=== PATIENT | male | born 1970 | race African-American/Black ===

== ENCOUNTER 2018-06-05 19:59 | Emergency (ER) | payer SELFPAY ==
[2018-06-05] MEDS ORDERED: AMLODIPINE BESYLATE 5 MG TABLET PO ONE (22:09)
--- NOTE | 2018-06-05 22:53 | ER Document Report ---
ED General - General Chief Complaint: Blurred Vision Stated Complaint: BLURRY VISION Time Seen by Provider: 06/05/18 21:59 Notes: Patient is a 48-year-old male who presents with complaint of some blurred vision. He says his vision became blurred after I work to drink a lot of soda. Says he is just craving soda today and drink three 2 L of soda followed by two 3 L of soda. This was not diastolic. He started noticing his vision was getting blurry and therefore check his blood sugar noticed was over 400 and therefore came to the ER. He does take metformin. He is also supposed to take amlodipine as well as lisinopril for high blood pressure however he does not take those now because he is read about some side effects of them and prefers to take natural medications. He therefore takes many supplements and vitamins. He is currently feeling better and has no further concerns at this time. Denies any chest pain or shortness of breath. No headache. No focal weakness or numbness. TRAVEL OUTSIDE OF THE [place] IN LAST 30 DAYS: No - Related Data Allergies/Adverse Reactions: No Known Allergies Allergy (Unverified 06/05/18 20:05) Past Medical History - Social History Smoking Status: Unknown if Ever Smoked Frequency of alcohol use: None Drug Abuse: None Family History: Reviewed & Not Pertinent Review of Systems - Review of Systems Notes: My Normal Review Basic REVIEW OF SYSTEMS: CONSTITUTIONAL : Denies fever, chills, or sweats. Denies recent illness. EENT: Blurred vision CARDIOVASCULAR: Denies chest pain. RESPIRATORY: Denies cough, cold, or chest congestion. Denies shortness of breath, difficulty breathing, or wheezing. GASTROINTESTINAL: Denies abdominal pain. Denies nausea, vomiting, or diarrhea. MUSCULOSKELETAL: Denies neck or back pain or joint pain or swelling. SKIN: Denies rash or skin lesions. NEUROLOGICAL: Denies altered mental status or loss of consciousness. Denies headache. Denies weakness or paralysis or loss of use of either side. Denies problems with gait or speech. Denies sensory or motor loss. P ALL OTHER SYSTEMS REVIEWED AND NEGATIVE. Physical Exam - Vital signs Vitals: Temp Pulse BP Pulse Ox 98.5 F 107 H 163/98 H 97 06/05/18 20:45 06/05/18 20:45 06/05/18 20:45 06/05/18 20:45 - Notes Notes: General Appearance: Well nourished, alert, cooperative, no acute distress, no obvious discomfort. Well-appearing. Vitals: reviewed, See vital signs table. Head: no swelling or tenderness to the head Eyes: PERRL, EOMI, Conjuctiva clear Mouth: No decreasd moisture Lungs: No wheezing, No rales, No rhonci, No accessory muscle use, good air exchange bilaterally. Heart: Normal rate, Regular rythm, No murmur, no rub Abdomen: Normal BS, soft, No rigidity, No abdominal tenderness, No guarding, no rebound, no abdominal masses, no organomegaly Extremities: strength 5/5 in all extremities, good pulses in all extremities, no swelling or tenderness in the extremities, no edema. Skin: warm, dry, appropriate color, no rash Neuro: speech clear, oriented x 3, normal affect, responds appropriately to questions. Cranial nerves II through XII are intact. Distal sensation intact. Patient moves all extremities without difficulty. Course - Re-evaluation Re-evalutation: 06/06/18 06:36 Patient's blood sugars down trending appropriately without any intervention. His eventually brought all his supplements. He is on close to 15 different kinds of vitamins and supplements. I informed the patient that I really have no idea what kind interaction all the supplements together could have. I informed him that I recommended just taking a multivitamin and then start taking his blood pressure medications again. I told him that we would at least start back with amlodipine. I have written a prescription for this. Patient is also now out of his metformin so have also written a prescription for that. Encourage him to continue try to lose weight as if he continues weight loss he may eventually will stop all medications. Patient agrees with plan will be discharged home. Is encouraged to return to ER if he has recurrent blurred vision, headaches, focal weakness or numbness, or feels unwell. Patient informed not to drink sugar containing drinks anymore. Dictation of this chart was performed using voice recognition software; therefore, there may be some unintended grammatical errors. - Vital Signs Vital signs: Temp Pulse Resp BP Pulse Ox 98.1 F 85 18 148/82 H 98 06/05/18 23:46 06/05/18 23:46 06/05/18 23:46 06/05/18 23:46 06/05/18 23:46 - Laboratory Result Diagrams: 06/05/18 22:50 Laboratory results interpreted by me: 06/05/18 06/05/18 22:50 22:50 Glucose 271 H POC Glucose 261 H Discharge - Discharge Clinical Impression: Hyperglycemia due to type 2 diabetes mellitus Qualifiers: Diabetes mellitus long term care social worker insulin use: without halfway use Qualified Code(s ): E11.65 - Type 2 diabetes mellitus with hyperglycemia Hypertension Qualifiers: Hypertension type: unspecified Qualified Code(s): I10 - Essential (primary) hypertension Condition: Good Disposition: HOME, SELF-CARE Additional Instructions: Please avoid all beverages with sugar. Drink diet soda if you want to drink soda. Please take your blood pressure medications. Please continue to try and lose weight. I would stop the supplements except for the multivitamin as they may interact with your prescribed medications. Prescriptions: Amlodipine Besylate 5 mg PO DAILY #30 tab Metformin HCl [Glucophage 500 mg Tablet] 1,000 mg PO BID #60 tablet
[2018-06-05 23:13] LABS: ANION GAP 13 (5-19); BLOOD UREA NITROGEN 12 mg/dL (7-20); CALCIUM 9.9 mg/dL (8.4-10.2); CARBON DIOXIDE 26 mmol/L (22-30); CHLORIDE 103 mmol/L (98-107); GLUCOSE 271 mg/dL (75-110); POTASSIUM 3.8 mmol/L (3.6-5.0); SODIUM 142.1 mmol/L (137-145)
[2018-06-05 23:47] VITALS: BP 148/82
== END 2018-06-05 23:47 | disposition home or self-care (01) ==
LOC: ER 19:59
DX: E11.65 Type 2 diabetes mellitus with hyperglycemia (principal); Z79.84 Long term (current) use of oral hypoglycemic drugs; I10 Essential (primary) hypertension; T46.4X6A Underdosing of angiotensin-converting-enzyme inhibitors, initial encounter; T46.1X6A Underdosing of calcium-channel blockers, initial encounter; Z91.128 Patient's intentional underdosing of medication regimen for other reason; Z91.14 Patient's other noncompliance with medication regimen; Z79.899 Other long term (current) drug therapy; H53.8 Other visual disturbances
CPT/HCPCS: 36415; 80048; 82962; 99284

== ENCOUNTER 2018-10-18 11:12 | Emergency (ER) | payer SELFPAY ==
[2018-10-18 11:40] VITALS: BP 153/86
--- NOTE | 2018-10-18 12:58 | ER Document Report ---
ED Eye Complaint - General Chief Complaint: Redness of Eye Stated Complaint: EYE IRRITATION, REDNESS Time Seen by Provider: 10/18/18 12:36 Mode of Arrival: Ambulatory Information source: Patient Notes: 48-year-old male presented to ED for complaint of right eye redness with clear watery drainage. He denies any matting to the eyes. He denies any visual disturbances. He denies any pain or itching. He states it is just clear drainage. The symptoms of an upper respiratory infection. Runny nose and congestion. Patient does deny any fevers. She is alert oriented respirations regular and unlabored speaking in full sentences walks with a even steady gait. TRAVEL OUTSIDE OF THE [place] IN LAST 30 DAYS: No - HPI Onset: This morning Eye location: Right Injury: No Quality of pain: No pain Severity: None Pain Level: Denies Associated symptoms: Redness - Mild redness to the conjunctival, Other - Clear drainage. denies: Burning, Itching, Pain, Photophobia, Matting, Eyelid sw elling, Orbital swelling, Blurred vision, Double vision, Decreased vision, Loss of vision - Related Data Allergies/Adverse Reactions: No Known Allergies Allergy (Verified 10/18/18 11:22) Past Medical History - General Information source: Patient - Social History Smoking Status: Never Smoker Chew tobacco use (# tins/day): No Frequency of alcohol use: None Drug Abuse: None Family History: Reviewed & Not Pertinent Patient has suicidal ideation: No Patient has homicidal ideation: No - Past Medical History Cardiac Medical History: Reports: Hx Hypertension Pulmonary Medical History: Reports: None EENT Medical History: Reports: None Neurological Medical History: Reports: None Endocrine Medical History: Reports: Hx Diabetes Mellitus Type 2 Renal/ Medical History: Reports: None Malignancy Medical History: Reports None GI Medical History: Reports: None Musculoskeletal Medical History: Reports None Skin Medical History: Reports None Psychiatric Medical History: Reports: None Traumatic Medical History: Reports: None Infectious Medical History: Reports: None Surgical Hx: Negative Past Surgical History: Reports: None - Immunizations Immunizations up to date: Yes Review of Systems - Review of Systems EENT: Eye discharge, Nose congestion, Nose discharge, Sinus pressure, Sinus discharge. denies: Eye pain Cardiovascular: No symptoms reported Respiratory: No symptoms reported Gastrointestinal: No symptoms reported Genitourinary: No symptoms reported Male Genitourinary: No symptoms reported Musculoskeletal: No symptoms reported Skin: No symptoms reported Hematologic/Lymphatic: No symptoms reported Neurological/Psychological: No symptoms reported -: Yes All other systems reviewed and negative Physical Exam - Vital signs Vitals: Temp Pulse Resp BP Pulse Ox 98.1 F 72 16 153/86 H 95 10/18/18 11:38 10/18/18 11:38 10/18/18 11:38 10/18/18 11:38 10/18/18 11:38 Interpretation: Normal - General General appearance: Appears well, Alert - HEENT Head: Normocephalic, Atraumatic Eyes: Normal Conjunctiva: Injected, Other - Clear drainage Cornea: Normal Extraocular movements intact: Yes Eyelashes: No: Matted Pupils: PERRL Ears: Normal External canal: Normal Tympanic membrane: Normal Sinus: Normal Nasal: Swelling, Clear rhinorrhea Mouth/Lips: Normal Mucous membranes: Normal Pharynx: Post nasal drainage Neck: Normal - Respiratory Respiratory status: No respiratory distress Chest status: Nontender Breath sounds: Normal Chest palpation: Normal - Cardiovascular Rhythm: Regular Heart sounds: Normal auscultation Murmur: No - Abdominal Inspection: Normal Distension: No distension Bowel sounds: Normal Tenderness: Nontender Organomegaly: No organomegaly - Back Back: Normal, Nontender - Extremities General upper extremity: Normal inspection, Nontender, Normal color, Normal ROM, Normal temperature General lower extremity: Normal inspection, Nontender, Normal color, Normal ROM, Normal temperature, Normal weight bearing. No: Krista's sign - Neurological Neuro grossly intact: Yes Cognition: Normal Orientation: AAOx4 Edde Coma Scale Eye Opening: Spontaneous [place] Coma Scale Verbal: Oriented Dede Coma Scale Motor: Obeys Commands Dede Coma Scale Total: 15 Speech: Normal Motor strength normal: LUE, RUE, LLE, RLE Sensory: Normal - Psychological Associated symptoms: Normal affect, Normal mood - Skin Skin Temperature: Warm Skin Moisture: Dry Skin Color: Normal Course - Re-evaluation Re-evalutation: 10/18/18 21:56 After performing a Medical Screening Examination, I estimate there is LOW risk for ACUTE CORONARY SYNDROME, RESPIRATORY FAILURE, SEPSIS OR MENINGITIS, thus I consider the discharge disposition reasonable. I have reevaluated this patient multiple times and no significant life threatening changes are noted. The patient and I have discussed the diagnosis and risks, and we agree with discharging home with close follow-up. We also discussed returning to the Emergency Department immediately if new or worsening symptoms occur. We have discussed the symptoms which are most concerning (e.g., changing or worsening pain, trouble swallowing or breathing, neck stiffness, fever) that necessitate immediate return. - Vital Signs Vital signs: Temp Pulse Resp BP Pulse Ox 98.1 F 72 16 153/86 H 95 10/18/18 11:38 10/18/18 11:38 10/18/18 11:38 10/18/18 11:38 10/18/18 11:38 Discharge - Discharge Clinical Impression: EKC (epidemic keratoconjunctivitis) URI (upper respiratory infection) Qualifiers: URI type: unspecified URI Qualified Code(s): J06.9 - Acute upper respiratory infection, unspecified Condition: Stable Disposition: HOME, SELF-CARE Additional Instructions: CONJUNCTIVITIS: You have an infection in your eye, commonly known as "pink eye." Conjunctivitis causes redness, mild discomfort, itching, and mattering on the eyelids. It is very contagious, so you must be careful to wash your hands after touching your face so you don't pass the infection on to others. Conjunctivitis is caused by both viruses and bacteria. Your type is a bacterial infection and does not need antibiotics at this time. I have given you a prescription of Polytrim if you start to have matted eyes and pain and burning in your eyes you may need the drops 1 drop each eye every 3 hours while awake until symptoms clear. If you do develop bacterial conjunctivitis please follow-up with a office services specialist immediately and I have given you the name and number of an office services specialist below. The only treatment you need at this time is warm compresses and [id number] eyedrops. It usually responds quickly to treatment with antibiotic drops. These should be placed in the eye as prescribed (usually every three to four hours while you're awake). If you wear contact lenses, don't put them in your eyes until the infection is cleared and you are no longer using the drops (unless your doctor advises you otherwise). Should you develop increasing eye pain, severe swelling, decreased vision, or fail to improve as expected, please return for re-examination. EYEDROP USE: Only use the eyedrops if your eyes are burning and you have matting to your eyelashes Eyedrops are most easily applied by pulling down on the cheek just below the lower eyelid. The lower lid will pop out to form a pouch into which you can drop the medicine. A small brief sting is not unusual, especially if the eye is reddened and irritated already. Use the drops exactly as recommended. You should see the doctor at once if there is a decrease in vision, swelling of the eye, or an increase in discomfort. FOLLOW-UP CARE: If you have been referred to a physician for follow-up care, call the physicians office for an appointment as you were instructed or within the next two days. If you experience worsening or a significant change in your symptoms, notify the physician immediately or return to the Emergency Department at any time for re-evaluation. Prescriptions: Polymyxin B Sulfate/Tmp [Polytrim Oph Soln 10 ml] 1 drop BTH_EYE Q4HWA #1 bottle Referrals: SHARON MOSQUEDA MD [ACTIVE STAFF] - Follow up as needed
== END 2018-10-18 13:24 | disposition home or self-care (01) ==
LOC: ER 11:12
DX: J06.9 Acute upper respiratory infection, unspecified (principal); B30.0 Keratoconjunctivitis due to adenovirus; H57.11 Ocular pain, right eye; R09.89 Other specified symptoms and signs involving the circulatory and respiratory systems; R09.81 Nasal congestion; I10 Essential (primary) hypertension; E11.9 Type 2 diabetes mellitus without complications
CPT/HCPCS: 99282

== ENCOUNTER 2019-01-10 01:03 | Emergency (ER) | payer SELFPAY ==
[2019-01-10] MEDS ORDERED: NORMAL SALINE 1000 ML 1,000 ML IV ONE ×3 (02:05→03:58)
[2019-01-10] MEDS ORDERED: INSULIN REG, HUMAN 100 UNIT/ML 3 ML VIAL (PYX) IV ONE ×2 (02:06→04:20)
--- NOTE | 2019-01-10 02:08 | ER Document Report ---
ED General - General Chief Complaint: Blurred Vision Stated Complaint: BLURRY VISION Time Seen by Provider: 01/10/19 01:58 Primary Care Provider: SHARON OSCAR MD [ACTIVE STAFF] - Follow up as needed JOSE FLORENCE MD [COMMUNITY BASED STAFF] - Follow up as needed Mode of Arrival: Ambulatory Information source: Patient TRAVEL OUTSIDE OF THE [place] IN LAST 30 DAYS: No - HPI Onset: Yesterday Onset/Duration: Sudden Quality of pain: No pain Severity: None Pain Level: Denies Associated symptoms: None Exacerbated by: Denies Relieved by: Denies Similar symptoms previously: No Recently seen / treated by doctor: No - Related Data Allergies/Adverse Reactions: No Known Allergies Allergy (Verified 10/18/18 11:22) Past Medical History - Social History Smoking Status: Unknown if Ever Smoked Family History: Reviewed & Not Pertinent - Past Medical History Cardiac Medical History: Reports: Hx Hypertension Endocrine Medical History: Reports: Hx Diabetes Mellitus Type 2 Renal/ Medical History: Denies: Hx Peritoneal Dialysis - Immunizations Immunizations up to date: Yes Review of Systems - Review of Systems Constitutional: No symptoms reported EENT: No symptoms reported, Blurred vision Cardiovascular: No symptoms reported Respiratory: No symptoms reported Gastrointestinal: No symptoms reported Genitourinary: Frequency Male Genitourinary: No symptoms reported Musculoskeletal: No symptoms reported Skin: No symptoms reported Hematologic/Lymphatic: No symptoms reported Neurological/Psychological: No symptoms reported -: Yes All other systems reviewed and negative Physical Exam - Vital signs Vitals: Temp Pulse Resp BP Pulse Ox 98.0 F 86 16 180/93 H 97 01/10/19 01:11 01/10/19 01:11 01/10/19 01:11 01/10/19 01:11 01/10/19 01:11 Interpretation: Normal - General General appearance: Appears well, Alert In distress: None Notes: Morbid Obesity. - HEENT Head: Normocephalic, Atraumatic Eyes: Normal Pupils: PERRL - Respiratory Respiratory status: No respiratory distress Chest status: Nontender Breath sounds: Normal Chest palpation: Normal - Cardiovascular Rhythm: Regular Heart sounds: Normal auscultation Murmur: No - Abdominal Inspection: Normal Distension: No distension Bowel sounds: Normal Tenderness: Nontender Organomegaly: No organomegaly - Back Back: Normal, Nontender - Extremities General upper extremity: Normal inspection, Nontender, Normal color, Normal ROM, Normal temperature General lower extremity: Normal inspection, Nontender, Normal color, Normal ROM, Normal temperature, Normal weight bearing. No: Krista's sign - Neurological Neuro grossly intact: Yes Cognition: Normal Orientation: AAOx4 Dede Coma Scale Eye Opening: Spontaneous [place] Coma Scale Verbal: Oriented Dede Coma Scale Motor: Obeys Commands [place] Coma Scale Total: 15 Speech: Normal Motor strength normal: LUE, RUE, LLE, RLE Sensory: Normal - Psychological Associated symptoms: Normal affect, Normal mood - Skin Skin Temperature: Warm Skin Moisture: Dry Skin Color: Normal Course - Vital Signs Vital signs: Temp Pulse Resp BP Pulse Ox 98.7 F 86 18 182/101 H 97 01/10/19 02:02 01/10/19 01:11 01/10/19 04:01 01/10/19 04:01 01/10/19 01:11 - Laboratory Result Diagrams: 01/10/19 02:35 01/10/19 02:35 Laboratory results interpreted by me: 01/10/19 01/10/19 01/10/19 02:35 03:39 04:11 Sodium 135.2 L Chloride 95 L Glucose 517 H* POC Glucose 354 H Alkaline Phosphatase 132 H Urine Glucose (UA) >=500 H Urine Ketones TRACE H Discharge - Discharge Clinical Impression: Hyperglycemia Diabetic retinopathy Qualifiers: Diabetes mellitus type: type 2 Diabetic retinopathy severity: with unspecified retinopathy severity Diabetes mellitus macular edema: without macular edema Laterality: bilateral Qualified Code(s): E11.319 - Type 2 diabetes mellitus with unspecified diabetic retinopathy without macular edema Condition: Stable Disposition: HOME, SELF-CARE Instructions: Hyperglycemia ([facility]) Additional Instructions: Please follow-up with Dr. Jose Florence and Dr Oscar (Ophthalmology) tomorrow morning. Return to the emergency room if your condition worsens. Prescriptions: Metformin HCl [Glucophage 500 mg Tablet] 1,000 mg PO BID #120 tablet Referrals: JOSE FLORENCE MD [COMMUNITY BASED STAFF] - Follow up as needed SHARON OSCAR MD [ACTIVE STAFF] - Follow up as needed
[2019-01-10 02:51] LABS: ABSOLUTE EOSINOPHILS # (AUTO) 0.1 10^3/uL (0.0-0.6); ABSOLUTE LYMPHOCYTES (AUTO) 2.5 10^3/uL (0.5-4.7); ABSOLUTE MONOCYTES (AUTO) 0.6 10^3/uL (0.1-1.4); ABSOLUTE NEUT (AUTO) 2.4 10^3/uL (1.7-8.2); BASOPHILS % (AUTO) 0.5 % (0-2); EOSINOPHILS % (AUTO) 1.2 % (0-6); HEMATOCRIT 40.2 % (37.9-51.0); HEMOGLOBIN 13.6 g/dL (13.5-17.0); LYMPHOCYTES % (AUTO) 44.9 % (13-45); MEAN CORPUSCULAR HEMOGLOBIN 29.8 pg (27.0-33.4); MEAN CORPUSCULAR HGB CONC 33.9 g/dL (32.0-36.0); MEAN CORPUSCULAR VOLUME 88 fl (80-97); MONOCYTES % (AUTO) 10.1 % (3-13); PLATELET COUNT 214 10^3/uL (150-450); RED BLOOD COUNT 4.58 10^6/uL (4.35-5.55); RED CELL DISTRIBUTION WIDTH 13.9 % (11.5-14.0); SEGMENTED NEUTROPHILS % (AUTO) 43.3 % (42-78); TOTAL CELLS COUNTED % (AUTO) 100 %; WHITE BLOOD COUNT 5.6 10^3/uL (4.0-10.5)
[2019-01-10 02:54] LABS: VENOUS BLOOD BASE EXCESS 0.9 mmol/L; VENOUS BLOOD HCO3 26.2 mmol/L (20-32); VENOUS BLOOD PCO2 44.2 mmHg (35-63); VENOUS BLOOD PH 7.39 (7.30-7.42)
[2019-01-10 03:10] LABS: ALANINE AMINOTRANSFERASE 61 U/L (21-72); ALBUMIN 4.4 g/dL (3.5-5.0); ALKALINE PHOSPHATASE 132 U/L (38-126); ANION GAP 12 (5-19); ASPARTATE AMINO TRANSFERASE 40 U/L (17-59); BILIRUBIN,DIRECT 0.4 mg/dL (0.0-0.4); BILIRUBIN,TOTAL 0.4 mg/dL (0.2-1.3); BLOOD UREA NITROGEN 11 mg/dL (7-20); CALCIUM 10.2 mg/dL (8.4-10.2); CARBON DIOXIDE 28 mmol/L (22-30); CHLORIDE 95 mmol/L (98-107); POTASSIUM 4.4 mmol/L (3.6-5.0); SODIUM 135.2 mmol/L (137-145); TOTAL PROTEIN 7.7 g/dL (6.3-8.2)
[2019-01-10 03:20] LABS: GLUCOSE 517 mg/dL (75-110)
[2019-01-10 03:36] LABS: INTERNATIONAL RATION (INR) 0.97; PARTIAL THROMBOPLASTIN TIME 26.5 SEC (23.5-35.8); PROTHROMBIN TIME 13.4 SEC (11.4-15.4)
[2019-01-10] MEDS ORDERED: LISINOPRIL 10 MG TABLET PO ONE (03:59)
[2019-01-10 04:41] LABS: APPEARANCE,URINE CLEAR; BILIRUBIN,URINE NEGATIVE (NEGATIVE); COLOR,URINE STRAW; GLUCOSE, URINE >=500 mg/dL (NEGATIVE); KETONES,URINE TRACE mg/dL (NEGATIVE); LEUKOCYTE ESTERASE,URINE NEGATIVE (NEGATIVE); NITRITE,URINE NEGATIVE (NEGATIVE); PROTEIN,URINE NEGATIVE (NEGATIVE); URINE SPECIFIC GRAVITY 1.033; UROBILINOGEN,URINE NEGATIVE mg/dL (<2.0)
[2019-01-10 05:06] VITALS: BP 144/77
== END 2019-01-10 05:28 | disposition home or self-care (01) ==
LOC: ER 01:03
DX: E11.319 Type 2 diabetes mellitus with unspecified diabetic retinopathy without macular edema (principal); E11.65 Type 2 diabetes mellitus with hyperglycemia; R35.0 Frequency of micturition; I10 Essential (primary) hypertension; E66.01 Morbid (severe) obesity due to excess calories
CPT/HCPCS: 99284; 96360; 96361; 36415; 82962; 85025; 85610; 85730; 80053; 81001; 82803; J1815; J7030

== ENCOUNTER 2019-03-23 00:30 | Emergency (ER) | payer OTHER ==
[2019-03-23 00:39] VITALS: BP 174/88
[2019-03-23] MEDS ORDERED: IBUPROFEN 800 MG TABLET PO ONE (01:33)
--- NOTE | 2019-03-23 01:35 | ER Document Report ---
ED Medical Screen (RME) - General Chief Complaint: Drainage from Eye Stated Complaint: LEFT EYE SWELLING,DISCHARGE Time Seen by Provider: 03/23/19 01:33 Mode of Arrival: Ambulatory Information source: Patient Notes: 49-year-old male presented to ED for complaint of redness swelling and drainage from his left eye. He states that Tuesday evening at work he was rubbing his eye by Tuesday the eye was swollen red painful with drainage. He states he has not seen any provider since the pain and swelling has started to the eye. 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 He states he had a patch on his eye tonight. He is alert oriented respirations regular and unlabored speaking in full sentences. He states he does not smoke drinks alcohol maybe twice a year and smokes a little pot last time but a month ago. He states he lives with his family. I have greeted and performed a rapid initial assessment of this patient. A comprehensive ED assessment and evaluation of the patient, analysis of test results and completion of medical decision making process will be conducted by an additional ED providers. Dictation of this chart was performed using voice recognition software; therefore, there may be some unintended grammatical errors. TRAVEL OUTSIDE OF THE [place] IN LAST 30 DAYS: No - Related Data Allergies/Adverse Reactions: No Known Allergies Allergy (Verified 10/18/18 11:22) Past Medical History - Past Medical History Cardiac Medical History: Reports: Hx Hypertension Endocrine Medical History: Reports: Hx Diabetes Mellitus Type 2 Renal/ Medical History: Denies: Hx Peritoneal Dialysis - Immunizations Immunizations up to date: Yes Physical Exam - Vital signs Vitals: Temp Pulse Resp BP Pulse Ox 97.8 F 86 17 174/88 H 98 03/23/19 00:38 03/23/19 00:38 03/23/19 00:38 03/23/19 00:38 03/23/19 00:38 Course - Vital Signs Vital signs: Temp Pulse Resp BP Pulse Ox 97.8 F 86 17 174/88 H 98 03/23/19 00:38 03/23/19 00:38 03/23/19 00:38 03/23/19 00:38 03/23/19 00:38
--- NOTE | 2019-03-23 03:06 | ER Document Report ---
ED Eye Complaint - General Chief Complaint: Drainage from Eye Stated Complaint: LEFT EYE SWELLING,DISCHARGE Time Seen by Provider: 03/23/19 01:33 Primary Care Provider: SHARON MOSQUEDA MD [ACTIVE STAFF] - 03/26/19 Mode of Arrival: Ambulatory Notes: Patient is a 49-year-old male that comes to the emergency department for chief complaint of irritation, discharge, and now a little bit of swelling to the left eye. He states he was rubbing his eye with a dirty hand that had "xiong on it", he states he thinks this is what caused the abnormality. He denies pain, visual loss, headache. He does report some discolored discharge. He does not wear contacts or glasses. He does have a history of diabetes, on oral medications. TRAVEL OUTSIDE OF THE [place] IN LAST 30 DAYS: No - Related Data Allergies/Adverse Reactions: No Known Allergies Allergy (Verified 03/23/19 04:09) Past Medical History - General Information source: Patient - Social History Smoking Status: Never Smoker Frequency of alcohol use: None Drug Abuse: None Lives with: Family Family History: Reviewed & Not Pertinent - Past Medical History Cardiac Medical History: Reports: Hx Hypertension Endocrine Medical History: Reports: Hx Diabetes Mellitus Type 2 Renal/ Medical History: Denies: Hx Peritoneal Dialysis - Immunizations Immunizations up to date: Yes Hx Diphtheria, Pertussis, Tetanus Vaccination: Yes Review of Systems - Review of Systems Constitutional: No symptoms reported EENT: See HPI Cardiovascular: No symptoms reported Respiratory: No symptoms reported Gastrointestinal: No symptoms reported Genitourinary: No symptoms reported Male Genitourinary: No symptoms reported Musculoskeletal: No symptoms reported Skin: No symptoms reported Hematologic/Lymphatic: No symptoms reported Neurological/Psychological: No symptoms reported Physical Exam - Vital signs Vitals: Temp Pulse Resp BP Pulse Ox 97.8 F 86 17 174/88 H 98 03/23/19 00:38 03/23/19 00:38 03/23/19 00:38 03/23/19 00:38 03/23/19 00:38 - Notes Notes: GENERAL: Alert, interacts well. No acute distress. HEAD: Normocephalic, atraumatic. EYES: Pupils equal, round, and reactive to light. Extraocular movements intact. Left eye with injected sclera with a small amount of purulent discharge at the medial canthus. There is also a small amount of erythema and swelling to the upper eyelid. No superficial foreign body, no fluorescein uptake, negative Miguel sign. ENT: Oral mucosa moist, tongue midline. Oropharynx unremarkable. Airway patent. Nares patent, no nasal septal hematoma, TM's intact. NECK: Full range of motion. Supple. Trachea midline. LUNGS: Clear to auscultation bilaterally, no wheezes, rales, or rhonchi. No respiratory distress. HEART: Regular rate and rhythm. No murmur ABDOMEN: Soft, non-tender. Non-distended. Bowel sounds present in all 4 quadrants. GENITOURINARY: Deferred EXTREMITIES: Moves all 4 extremities spontaneously. No edema, normal radial and dorsalis pedis pulses bilaterally. No cyanosis. BACK: no cervical, thoracic, lumbar midline tenderness. No saddle anesthesia, normal distal neurovascular exam. Moves all extremities in full range of motion. NEUROLOGICAL: Alert and oriented x3. Normal speech. Cranial nerves II through XII grossly intact. SKIN: Warm, dry, normal turgor. No rashes or lesions noted. Course - Re-evaluation Re-evalutation: Patient's evaluation is consistent with conjunctivitis and preseptal cellulitis. He has normal EOMs without pain, he has no pain in the eye whatsoever, he has no visual loss or change, he wears no visual correction. Fluorescein examination is completely unremarkable. He does not have a headache or any other reported symptoms. No fever. Patient will be started on oral and topical antibiotics, he will follow-up with ophthalmology closely, he will return if he worsens. This was discussed in detail. Patient states satisfaction and agreement. - Vital Signs Vital signs: Temp Pulse Resp BP Pulse Ox 97.8 F 86 17 174/88 H 98 03/23/19 00:38 03/23/19 00:38 03/23/19 00:38 03/23/19 00:38 03/23/19 00:38 Discharge - Discharge Clinical Impression: Preseptal cellulitis of left eye Conjunctivitis Qualifiers: Conjunctivitis type: acute Acute conjunctivitis type: bacterial Laterality: left Qualified Code(s): H10.32 - Unspecified acute conjunctivitis, left eye Condition: Stable Disposition: HOME, SELF-CARE Additional Instructions: Your evaluation is consistent with both the conjunctivitis (pinkeye) and preseptal cellulitis (infection involving the eyelid). Take both oral antibiotics and antibiotic drops (1 drop, 4 times a day, for 7 days). Follow-up with the ophthalmology referral for additional evaluation and management. Return if you worsen including loss of vision, swelling, developing pain, fever, or any other concerning or worsening symptoms. Prescriptions: Cephalexin Monohydrate [Keflex 500 mg Capsule] 500 mg PO QID #28 capsule Forms: Elevated Blood Pressure, Return to School, Return to Work Referrals: SHARON MOSQUEDA MD [ACTIVE STAFF] - 03/26/19
[2019-03-23] MEDS ORDERED: POLYMYXIN B SULFATE/TMP OPH SOLN (10 ML/ER DISP) OS PRN (03:37)
[2019-03-23] MEDS ORDERED: CEPHALEXIN 500 MG CAPSULE PO ONE (03:37)
== END 2019-03-23 03:58 | disposition home or self-care (01) ==
LOC: ER 00:30
DX: L03.213 Periorbital cellulitis (principal); H10.32 Unspecified acute conjunctivitis, left eye; I10 Essential (primary) hypertension; E11.9 Type 2 diabetes mellitus without complications
CPT/HCPCS: 99283; J3490

== ENCOUNTER 2019-09-18 02:00 | Emergency (ER) | payer SELFPAY ==
[2019-09-18 02:41] LABS: ABSOLUTE EOSINOPHILS # (AUTO) 0.1 10^3/uL (0.0-0.6); ABSOLUTE LYMPHOCYTES (AUTO) 2.2 10^3/uL (0.5-4.7); ABSOLUTE MONOCYTES (AUTO) 0.6 10^3/uL (0.1-1.4); ABSOLUTE NEUT (AUTO) 3.4 10^3/uL (1.7-8.2); BASOPHILS % (AUTO) 0.5 % (0-2); HEMATOCRIT 39.7 % (37.9-51.0); HEMOGLOBIN 13.4 g/dL (13.5-17.0); LYMPHOCYTES % (AUTO) 34.5 % (13-45); MEAN CORPUSCULAR HGB CONC 33.8 g/dL (32.0-36.0); MEAN CORPUSCULAR VOLUME 89 fl (80-97); MONOCYTES % (AUTO) 9.5 % (3-13); PLATELET COUNT 201 10^3/uL (150-450); RED BLOOD COUNT 4.48 10^6/uL (4.35-5.55); RED CELL DISTRIBUTION WIDTH 13.6 % (11.5-14.0); SEGMENTED NEUTROPHILS % (AUTO) 54.5 % (42-78); TOTAL CELLS COUNTED % (AUTO) 100 %; WHITE BLOOD COUNT 6.3 10^3/uL (4.0-10.5)
[2019-09-18 02:45] LABS: APPEARANCE,URINE CLEAR; BILIRUBIN,URINE NEGATIVE (NEGATIVE); COLOR,URINE STRAW; GLUCOSE, URINE >=500 mg/dL (NEGATIVE); KETONES,URINE NEGATIVE (NEGATIVE); LEUKOCYTE ESTERASE,URINE NEGATIVE (NEGATIVE); NITRITE,URINE NEGATIVE (NEGATIVE); PROTEIN,URINE NEGATIVE (NEGATIVE); URINE SPECIFIC GRAVITY 1.028; UROBILINOGEN,URINE NEGATIVE mg/dL (<2.0)
[2019-09-18 02:58] LABS: ALBUMIN 4.1 g/dL (3.5-5.0); ALKALINE PHOSPHATASE 145 U/L (38-126); ANION GAP 11 (5-19); ASPARTATE AMINO TRANSFERASE 24 U/L (17-59); BILIRUBIN,DIRECT 0.1 mg/dL (0.0-0.4); BILIRUBIN,TOTAL 0.2 mg/dL (0.2-1.3); BLOOD UREA NITROGEN 11 mg/dL (7-20); CALCIUM 9.4 mg/dL (8.4-10.2); CARBON DIOXIDE 26 mmol/L (22-30); CHLORIDE 99 mmol/L (98-107); POTASSIUM 4.4 mmol/L (3.6-5.0); TOTAL PROTEIN 7.8 g/dL (6.3-8.2)
[2019-09-18 03:32] LABS: GLUCOSE 474 mg/dL (75-110)
[2019-09-18] MEDS ORDERED: NORMAL SALINE 1000 ML 1,000 ML IV ONE ×2 (03:33→03:34)
--- NOTE | 2019-09-18 06:14 | ER Document Report ---
ED Blood Sugar Problem - General Chief Complaint: High Blood Sugar Stated Complaint: BLOOD SUGAR ISSUES Time Seen by Provider: 09/18/19 03:33 Primary Care Provider: DENIS BERMUDEZ MD [NO LOCAL MD] - Follow up as needed MARJORIE WILKES MD [ACTIVE STAFF] - Follow up as needed LESLEE BAHENA MD [ACTIVE STAFF] - Follow up as needed Mode of Arrival: Ambulatory Information source: Patient Notes: Patient is a 49-year-old male past medical history of type 2 diabetes and hypertension presenting with complaints of elevated blood glucose. Patient reports he has been off his medications for at least 1 month. He states he has been trying to control his diabetes with his diet. Patient reports that over the holidays he is indulged on foods that he is not supposed to eat. He does report some increased thirst and increased urination. Denies any fevers or vomiting. TRAVEL OUTSIDE OF THE [place] IN LAST 30 DAYS: No - Related Data Allergies/Adverse Reactions: No Known Allergies Allergy (Verified 03/23/19 04:09) Past Medical History - General Information source: Patient - Social History Smoking Status: Never Smoker Family History: Reviewed & Not Pertinent Patient has suicidal ideation: No Patient has homicidal ideation: No - Past Medical History Cardiac Medical History: Reports: Hx Hypertension Endocrine Medical History: Reports: Hx Diabetes Mellitus Type 2 Renal/ Medical History: Denies: Hx Peritoneal Dialysis - Immunizations Immunizations up to date: Yes Hx Diphtheria, Pertussis, Tetanus Vaccination: Yes Review of Systems - Review of Systems Constitutional: No symptoms reported EENT: No symptoms reported Cardiovascular: No symptoms reported Respiratory: No symptoms reported Gastrointestinal: No symptoms reported Genitourinary: No symptoms reported Male Genitourinary: No symptoms reported Musculoskeletal: No symptoms reported Skin: No symptoms reported Hematologic/Lymphatic: No symptoms reported Neurological/Psychological: No symptoms reported Physical Exam - Vital signs Vitals: Temp Pulse Resp BP Pulse Ox 97.8 F 93 18 176/91 H 94 09/18/19 02:10 09/18/19 02:10 09/18/19 02:10 09/18/19 02:10 09/18/19 02:10 - Notes Notes: PHYSICAL EXAMINATION: GENERAL: Well-appearing, well-nourished and in no acute distress. HEAD: Atraumatic, normocephalic. EYES: Pupils equal round and reactive to light, extraocular movements intact, conjunctiva are normal. ENT: Nares patent, oropharynx clear without exudates. Moist mucous membranes. NECK: Normal range of motion, supple without lymphadenopathy LUNGS: Breath sounds clear to auscultation bilaterally and equal. No wheezes rales or rhonchi. HEART: Regular rate and rhythm without murmurs ABDOMEN: Soft, nontender, nondistended abdomen. No guarding, no rebound. No masses appreciated. Female : deferred Musculoskeletal: Normal range of motion, no pitting or edema. No cyanosis. NEUROLOGICAL: Cranial nerves grossly intact. Normal speech, normal gait. Normal sensory, motor exams PSYCH: Normal mood, normal affect. SKIN: Warm, Dry, normal turgor, no rashes or lesions noted. Course - Re-evaluation Re-evalutation: Laboratory 09/18/19 09/18/19 09/18/19 02:22 02:27 02:27 WBC 6.3 RBC 4.48 Hgb 13.4 L Hct 39.7 MCV 89 MCH 30.0 MCHC 33.8 RDW 13.6 Plt Count 201 Lymph % (Auto) 34.5 [place] % (Auto) 9.5 Eos % (Auto) 1.0 Baso % (Auto) 0.5 Absolute Neuts (auto) 3.4 Absolute Lymphs (auto) 2.2 Absolute Monos (auto) 0.6 Absolute Eos (auto) 0.1 Absolute Basos (auto) 0.0 Seg Neutrophils % 54.5 Sodium 136.2 L Potassium 4.4 Chloride 99 Carbon Dioxide 26 Anion Gap 11 BUN 11 Creatinine 0.74 Est GFR ( Amer) > 60 Est GFR (MDRD) Non-Af > 60 Glucose 474 H* POC Glucose 442 H* Calcium 9.4 Total Bilirubin 0.2 Direct Bilirubin 0.1 Neonat Total Bilirubin Not Reportable Neonat Direct Bilirubin Not Reportable Neonat Indirect Bili Not Reportable AST 24 ALT 36 Alkaline Phosphatase 145 H Total Protein 7.8 Albumin 4.1 Urine Color Urine Appearance Urine pH Ur Specific [place] Urine Protein Urine Glucose (UA) Urine Ketones Urine Blood Urine Nitrite Urine Bilirubin Urine Urobilinogen Ur Leukocyte Esterase Urine WBC (Auto) Squamous Epi Cells Auto Urine Mucus (Auto) Urine Ascorbic Acid 12/03/19 12/03/19 12/03/19 02:27 03:58 05:39 WBC RBC Hgb Hct MCV MCH MCHC RDW Plt Count Lymph % (Auto) [place] % (Auto) Eos % (Auto) Baso % (Auto) Absolute Neuts (auto) Absolute Lymphs (auto) Absolute Monos (auto) Absolute Eos (auto) Absolute Basos (auto) Seg Neutrophils % Sodium Potassium Chloride Carbon Dioxide Anion Gap BUN Creatinine Est GFR ( Amer) Est GFR (MDRD) Non-Af Glucose POC Glucose 388 H 321 H Calcium Total Bilirubin Direct Bilirubin Neonat Total Bilirubin Neonat Direct Bilirubin Neonat Indirect Bili AST ALT Alkaline Phosphatase Total Protein Albumin Urine Color STRAW Urine Appearance CLEAR Urine pH 6.0 Ur Specific [place] 1.028 Urine Protein NEGATIVE Urine Glucose (UA) >=500 H Urine Ketones NEGATIVE Urine Blood NEGATIVE Urine Nitrite NEGATIVE Urine Bilirubin NEGATIVE Urine Urobilinogen NEGATIVE Ur Leukocyte Esterase NEGATIVE Urine WBC (Auto) 0 Squamous Epi Cells Auto <1 Urine Mucus (Auto) RARE Urine Ascorbic Acid NEGATIVE Laboratory studies as outlined above. No evidence of diabetic ketoacidosis. Patient's blood glucose has come down nicely with IV fluids. Patient will be given a dose of his metformin and his amlodipine here in the emergency department. He will be discharged home with prescription for same. Encouraged to follow-up with primary care. Patient verbalized understanding and agreement with same. The patient's emergency department workup and current diagnosis were explained to the patient and or family. Follow-up instructions were provided. Medications if prescribed were discussed. Instructions for when to return to the emergency department including specific worrisome symptoms were discussed with the patient and/or family. - Vital Signs Vital signs: Temp Pulse Resp BP Pulse Ox 98.1 F 82 20 180/94 H 100 09/18/19 06:56 09/18/19 06:56 09/18/19 06:56 09/18/19 06:57 09/18/19 06:57 - Laboratory Result Diagrams: 09/18/19 02:27 09/18/19 02:27 Laboratory results interpreted by me: 09/18/19 09/18/19 09/18/19 02:22 02:27 02:27 Hgb 13.4 L Sodium 136.2 L Glucose 474 H* POC Glucose 442 H* Alkaline Phosphatase 145 H Urine Glucose (UA) 09/18/19 09/18/19 09/18/19 02:27 03:58 05:39 Hgb Sodium Glucose POC Glucose 388 H 321 H Alkaline Phosphatase Urine Glucose (UA) >=500 H Discharge - Discharge Clinical Impression: Hyperglycemia Hypertension Qualifiers: Hypertension type: unspecified Qualified Code(s): I10 - Essential (primary) hypertension Condition: Stable Disposition: HOME, SELF-CARE Additional Instructions: Hyperglycemia (High Blood Sugar) You have an abnormally high blood sugar. Not all high blood sugar requires long-term treatment. High blood sugar can be due to medications, , or the stress of illness. (These cases are "borderline diabetes.") If the doctor feels your high blood sugar might resolve with time, you may not require treatment now. You will be scheduled for further evaluation. It's very important that you follow through, to see if the blood sugar returns to normal levels. Uncontrolled high blood sugar leads to early heart disease, strokes, nerve damage, eye damage, and kidney damage. Call the physician if there is faintness, excess sleepiness, or very rapid breathing. Please take medications as prescribed, follow-up with primary care, a list has been provided for you below. Prescriptions: Metformin HCl [Glucophage 500 mg Tablet] 500 mg PO BID #60 tablet Amlodipine Besylate [Norvasc 5 mg Tablet] 5 mg PO DAILY #30 tablet Referrals: LESLEE BAHENA MD [ACTIVE STAFF] - Follow up as needed MARJORIE WILKES MD [ACTIVE STAFF] - Follow up as needed DENIS BERMUDEZ MD [NO LOCAL MD] - Follow up as needed
[2019-09-18] MEDS ORDERED: METFORMIN HCL 500 MG TABLET PO ONE (06:26)
[2019-09-18] MEDS ORDERED: AMLODIPINE BESYLATE 5 MG TABLET PO ONE (06:26)
[2019-09-18 06:58] VITALS: BP 180/94
== END 2019-09-18 07:06 | disposition home or self-care (01) ==
LOC: ER 02:00
DX: E11.9 Type 2 diabetes mellitus without complications (principal); I10 Essential (primary) hypertension
CPT/HCPCS: 99283; 96360; 96361; 36415; 82962; 85025; 80053; 81001; J7030